=== PATIENT | female | born 1960 | race Caucasian/White ===

== ENCOUNTER → 2016-09-28 | Outpatient (CLI) | payer OTHER ==
[2016-01-07 09:01] VITALS: BP 109/70
[~2016-09-28] MED LIST: ASPI-482 PO; ATOR20TA58 PO; EXEN10PE SQ; LINA5TAB PO; LISI-338 PO; METF10002 PO
[2016-09-28 09:42] LABS: CREATININE 0.7 mg/dL (0.6-1.0); GFR 87.5; POTASSIUM 5.1 mmol/L (3.5-5.1)
== END | disposition home or self-care (01) ==
LOC: LAB 08:40
PROVIDERS: ATTEND Family Medicine
DX: I10 Essential (primary) hypertension (principal); E11.69 Type 2 diabetes mellitus with other specified complication
CPT/HCPCS: 36415; 80048; 83036

== ENCOUNTER → 2016-12-07 | Outpatient (CLI) | payer OTHER ==
[2016-01-07 09:01] VITALS: BP 109/70
[~2016-12-07] MED LIST changes: -LINA5TAB PO; +LINA5TAB4 PO; +METF-620 PO; -METF10002 PO
--- NOTE | 2016-12-07 09:48 | RAD ---
DATE: 12/07/2016 EXAM: DIGITAL SCREEN BILAT W/CAD HISTORY: Routine screening COMPARISON: 09/02/2014 This study was interpreted with the benefit of Computerized Aided Detection (CAD). FINDINGS: The breasts are predominantly fatty in nature. There are benign-appearing lymph node type densities in the axillary tail regions bilaterally. No new or enlarging breast densities are seen. Several benign type microcalcifications are in present. No suspicious microcalcifications have developed. The breast parenchyma is primarily fatty replaced. Breast parenchyma level density A. IMPRESSION: Stable mammograms without evidence of malignancy. BI-RADS CATEGORY: 2 BENIGN FINDING(S) RECOMMENDED FOLLOW-UP: 12M 12 MONTH FOLLOW-UP PQRS compliance statement: Patient information was entered into a reminder system with a target due date for the next mammogram. Mammography is a sensitive method for finding small breast cancers, but it does not detect them all and is not a substitute for careful clinical examination. A negative mammogram does not negate a clinically suspicious finding and should not result in delay in biopsying a clinically suspicious abnormality. "Our facility is accredited by the [employer] Mammography Program."
== END | disposition home or self-care (01) ==
LOC: MAMMO 08:25
PROVIDERS: ATTEND Family Medicine
DX: Z12.31 Encounter for screening mammogram for malignant neoplasm of breast (principal)
CPT/HCPCS: G0202; 77067

== ENCOUNTER → 2017-04-13 | Outpatient (CLI) | payer OTHER ==
[2016-01-07 09:01] VITALS: BP 109/70
[~2017-04-13] MED LIST changes: -EXEN10PE SQ; +EXEN10PE3 SQ
== END | disposition home or self-care (01) ==
LOC: LAB 13:11
PROVIDERS: ATTEND Family Medicine
DX: E11.69 Type 2 diabetes mellitus with other specified complication (principal)
CPT/HCPCS: 36415; 83036

== ENCOUNTER → 2017-10-12 | Outpatient (CLI) | payer OTHER ==
[2017-10-12 07:44] LABS: ANION GAP 10 (6-14); BLOOD UREA NITROGEN 19 mg/dL (7-20); CALCIUM 8.9 mg/dL (8.5-10.1); CARBON DIOXIDE 23 mmol/L (21-32); CHLORIDE 105 mmol/L (98-107); CHOLESTEROL 197 mg/dL (0-200); CREATININE 0.9 mg/dL (0.6-1.0); GFR 65.2; GLUCOSE 280 mg/dL (70-99); HDLC 38 mg/dL (40-60); LDLC 113 mg/dL (0-100); NON-HDL CHOLESTEROL 159 mg/dL (0-129); POTASSIUM 4.6 mmol/L (3.5-5.1); SODIUM 138 mmol/L (136-145); TRIGLYCERIDES 229 mg/dL (0-150); VLDLC 46 mg/dL (0-40)
[2017-10-12 07:45] LABS: CHOLESTEROL/HDL RATIO 5.2
[2017-10-12 07:54] LABS: THYROID STIM HORMONE (TSH) 2.696 uIU/mL (0.358-3.74)
[2017-10-12 12:16] LABS: HEMOGLOBIN A1C 8.4 % (4.8-5.6)
== END | disposition home or self-care (01) ==
LOC: LAB 06:58
DX: E11.69 Type 2 diabetes mellitus with other specified complication (principal); R53.83 Other fatigue
CPT/HCPCS: 36415; 80048; 80061; 83036; 84443

== ENCOUNTER → 2017-12-24 | Outpatient (CLI) | payer OTHER ==
[2017-12-24 07:36] LABS: ALBUMIN 3.2 g/dL (3.4-5.0); ALBUMIN/GLOBULIN RATIO 0.8 (1.0-1.7); ALK PHOS 68 U/L (46-116); ALT (SGPT) 20 U/L (14-59); ANION GAP 10 (6-14); AST (SGOT) 17 U/L (15-37); BLOOD UREA NITROGEN 16 mg/dL (7-20); BUN/CREATININE RATIO 20 (6-20); CALCIUM 8.7 mg/dL (8.5-10.1); CARBON DIOXIDE 24 mmol/L (21-32); CHLORIDE 102 mmol/L (98-107); CHOLESTEROL 137 mg/dL (0-200); CHOLESTEROL/HDL RATIO 3.8; CREATININE 0.8 mg/dL (0.6-1.0); GFR 74.5; GLUCOSE 267 mg/dL (70-99); HDLC 36 mg/dL (40-60); LDLC 60 mg/dL (0-100); NON-HDL CHOLESTEROL 101 mg/dL (0-129); POTASSIUM 4.4 mmol/L (3.5-5.1); SODIUM 136 mmol/L (136-145); TOTAL BILIRUBIN 0.3 mg/dL (0.2-1.0); TOTAL PROTEIN 7.4 g/dL (6.4-8.2); TRIGLYCERIDES 203 mg/dL (0-150); VLDLC 41 mg/dL (0-40)
== END | disposition home or self-care (01) ==
LOC: LAB 07:00
DX: I25.10 Atherosclerotic heart disease of native coronary artery without angina pectoris (principal)
CPT/HCPCS: 36415; 80053; 80061

== ENCOUNTER → 2018-06-18 | Outpatient (CLI) | payer OTHER ==
[2017-11-14 15:00] VITALS: BP 138/78
[~2018-06-18] MED LIST changes: +ASPI325T8 PO; +ATOR40TA PO; +BENA1TAB6 PO; +CELE200C PO; +ESTR1PAT66 TD; +GLIM4TAB2 PO; -METF-620 PO; +METF10007 PO; +METO25TA4 PO; +SIMV20TA3 PO; +SITA100T PO
--- NOTE | 2018-06-18 15:16 | RAD ---
Single frontal view hand and 2 view right 1st finger 06/18/2018 CLINICAL INDICATION: Swelling of the 1st MCP phalangeal joint. COMPARISON: None. FINDINGS: No acute fracture or traumatic malalignment with attention to the 1st digit. Normal bony alignment of the hand on single AP view. 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 Minimal scattered DIP and 2nd through 4th PIP osteoarthritis. Normal bony mineralization. Vascular calcifications at the radial aspect of the wrist. IMPRESSION: 1. No acute osseous abnormality of the 1st digit. 2. Osteoarthritis, as detailed above. Electronically signed by: Bharat Hernandez MD (06/18/2018 3:12 PM) [id number]
[2018-06-18 19:14] LABS: HEMOGLOBIN A1C 12.8 % (4.8-5.6)
== END | disposition home or self-care (01) ==
LOC: RAD 08:43
PROVIDERS: ATTEND Family Medicine
DX: M19.041 Primary osteoarthritis, right hand (principal); E11.69 Type 2 diabetes mellitus with other specified complication
CPT/HCPCS: 36415; 73140; 82043; 83036

== ENCOUNTER → 2019-06-19 | Outpatient (CLI) | payer OTHER ==
[2017-11-14 15:00] VITALS: BP 138/78
[~2019-06-19] MED LIST changes: -GLIM4TAB2 PO; +GLIM4TAB4 PO; +LINA5TAB PO; -LINA5TAB4 PO; +SIMV20TA18 PO; -SIMV20TA3 PO
[2019-06-19 08:23] LABS: CALCIUM 9.1 mg/dL (8.5-10.1); CREATININE 0.9 mg/dL (0.6-1.0); GFR 64.8; POTASSIUM 4.3 mmol/L (3.5-5.1)
[2019-06-19 08:24] LABS: CHOLESTEROL/HDL RATIO 3.8
[2019-06-20 00:07] LABS: HEMOGLOBIN A1C 9.5 % (4.8-5.6)
== END | disposition home or self-care (01) ==
LOC: LAB 07:12
PROVIDERS: ATTEND Family Medicine
DX: E11.69 Type 2 diabetes mellitus with other specified complication (principal)
CPT/HCPCS: 36415; 80048; 80061; 83036

== ENCOUNTER → 2019-06-19 | Outpatient (CLI) | payer OTHER ==
[2017-11-14 15:00] VITALS: BP 138/78
[2019-06-19 08:27] LABS: ALBUMIN 3.6 g/dL (3.4-5.0); ALBUMIN/GLOBULIN RATIO 0.9 (1.0-1.7); CALCIUM 9.1 mg/dL (8.5-10.1); CREATININE 0.9 mg/dL (0.6-1.0); GFR 64.8; POTASSIUM 4.3 mmol/L (3.5-5.1); TOTAL BILIRUBIN 0.3 mg/dL (0.2-1.0); TOTAL PROTEIN 7.8 g/dL (6.4-8.2)
[2019-06-19 08:28] LABS: CHOLESTEROL/HDL RATIO 3.8
== END | disposition home or self-care (01) ==
LOC: LAB 07:03
PROVIDERS: ATTEND Internal Medicine Cardiovascular Disease
DX: I25.10 Atherosclerotic heart disease of native coronary artery without angina pectoris (principal)
CPT/HCPCS: 36415; 80053; 80061; 83721

== ENCOUNTER → 2020-06-29 | Outpatient (CLI) | payer OTHER ==
[2017-11-14 15:00] VITALS: BP 138/78
[~2020-06-29] MED LIST changes: -GLIM4TAB4 PO; +GLIM4TAB8 PO
[2020-06-29 10:24] LABS: CALCIUM 8.9 mg/dL (8.5-10.1); CREATININE 1.3 mg/dL (0.6-1.0); GFR 42.2; POTASSIUM 4.8 mmol/L (3.5-5.1)
[2020-06-29 10:26] LABS: CHOLESTEROL/HDL RATIO 4.1
== END ==
LOC: LAB 09:55
PROVIDERS: ATTEND Family Medicine
DX: E11.69 Type 2 diabetes mellitus with other specified complication (principal)
CPT/HCPCS: 36415; 80048; 80061; 83036

== ENCOUNTER → 2020-12-09 | Outpatient (CLI) | payer OTHER ==
[2017-11-14 15:00] VITALS: BP 138/78
[~2020-12-09] MED LIST changes: -LISI-338 PO; +LISI-517 PO
--- NOTE | 2020-12-09 13:57 | CARD ---
MR#: [id number] Date of Study: 12/09/2020 Ordering Physician: ASHUTOSH POP, Referring Physician: ASHUTOSH POP, Tech: Fe Morris [facility] APPROVED REPORT EXAM: Two-dimensional and M-mode echocardiogram with Doppler and color Doppler. Other Information Quality : FairHR: 93bpm Rhythm : NSR INDICATION Dyspnea RISK FACTORS Hypertension Obesity Hyperlipidemia 2D DIMENSIONS RVDd3.1 (2.9-3.5cm)Left Atrium(2D)3.6 (1.6-4.0cm) IVSd1.1 (0.7-1.1cm)LVDd4.2 (3.9-5.9cm) PWd1.3 (0.7-1.1cm)LVDs2.5 (2.5-4.0cm) FS (%) 40.4 %SV56.3 ml LVEF(%)71.5 (>50%) Aortic Valve AoV Peak Watson.107.4cm/sAoV VTI25.8cm AO Peak GR.4.6mmHgLVOT Peak Watson.97.2cm/s AO Mean GR.2mmHg Mitral Valve MV E Ycxayqop93.8cm/sMV DECEL [id number] MV A Lkbxzmes81.6cm/sE/A Ratio1.1 Pulmonary Valve PV Peak Izqguafv90.8cm/s Tricuspid Valve TR P. Ffazfilb079ey/sTR Peak Gr.16mmHg LEFT VENTRICLE The left ventricle is normal size. There is mild concentric left ventricular hypertrophy. The left ve ntricular systolic function is normal and the ejection fraction is within normal range. Estimated eje ction fraction 55-60%. There is normal LV segmental wall motion. The left ventricular diastolic funct ion and filling is normal for age. RIGHT VENTRICLE The right ventricle is normal size. There is normal right ventricular wall thickness. The right ventr icular systolic function is normal. ATRIA The left atrium size is normal. The right atrium size is normal. The interatrial septum is intact wit h no evidence for an atrial septal defect or patent foramen ovale as noted on 2-D or Doppler imaging. AORTIC VALVE The aortic valve is normal in structure and function. Doppler and Color Flow revealed no significant aortic regurgitation. There is no significant aortic valvular stenosis. MITRAL VALVE The mitral valve is normal in structure and function. There is no evidence of mitral valve prolapse. There is no mitral valve stenosis. Doppler and Color Flow revealed no mitral valve regurgitation note d. TRICUSPID VALVE The tricuspid valve is normal in structure and function. Doppler and Color Flow revealed trace to mil d tricuspid regurgitation. Estimated PAP 20 mmHg. There is no tricuspid valve stenosis. PULMONIC VALVE Doppler and Color Flow revealed no pulmonic valvular regurgitation. There is no pulmonic valvular marquis nosis. GREAT VESSELS The aortic root is normal in size. The ascending aorta is normal in size. The IVC is normal in size a nd collapses >50% with inspiration. PERICARDIAL EFFUSION There is no evidence of significant pericardial effusion. Critical Notification Critical Value: No <Conclusion> The left ventricular systolic function is normal and the ejection fraction is within normal range. E stimated ejection fraction 55-60%. There is normal LV segmental wall motion. Signed by : Ashutosh Pop, Electronically Approved : 12/09/2020 13:57:08
== END ==
LOC: ECHO 06:44
PROVIDERS: ATTEND Internal Medicine Cardiovascular Disease
DX: I07.1 Rheumatic tricuspid insufficiency (principal); I25.10 Atherosclerotic heart disease of native coronary artery without angina pectoris
CPT/HCPCS: 93306

== ENCOUNTER → 2021-01-12 | Outpatient (CLI) | payer OTHER ==
[2017-11-14 15:00] VITALS: BP 138/78
[2021-01-12 08:08] LABS: CHOLESTEROL/HDL RATIO 4.2
== END ==
LOC: LAB 07:17
PROVIDERS: ATTEND Internal Medicine Cardiovascular Disease
DX: I25.10 Atherosclerotic heart disease of native coronary artery without angina pectoris (principal)
CPT/HCPCS: 36415; 80061

== ENCOUNTER → 2021-01-12 | Outpatient (CLI) | payer OTHER ==
[2017-11-14 15:00] VITALS: BP 138/78
[2021-01-12 23:08] LABS: HEMOGLOBIN A1C 6.6 % (4.8-5.6)
== END ==
LOC: LAB 07:10
PROVIDERS: ATTEND Family Medicine
DX: E11.9 Type 2 diabetes mellitus without complications (principal)
CPT/HCPCS: 36415; 83036

== ENCOUNTER → 2021-04-18 | Outpatient (CLI) | payer OTHER ==
[2017-11-14 15:00] VITALS: BP 138/78
== END ==
LOC: LAB 12:29
PROVIDERS: ATTEND Internal Medicine Pulmonary Disease
DX: U07.1 COVID-19 (principal)
CPT/HCPCS: U0003; U0005

== ENCOUNTER → 2021-04-20 | Outpatient (CLI) | payer OTHER ==
[~2021-04-20] MED LIST changes: +CASIRIVIMAB/IMDEVIMAB 600/600mg in IV NS TV=50 ML IV ONE
--- NOTE | 2021-04-20 16:20 | NUR ---
Received call this afternoon stating that pt was feeling worse today with Covid symptoms of headache, bone and muscle aches, as well as developing worsening respiratory symptoms. Pt stated she had not received a call back from [facility] and was getting concerned. Called and spoke with Viky Lee and Dr. Bernabe re: pt receiving possible Regeneron infusion at [facility]. Viky stated to have pt report to the ED, Dr. Bernabe stated that pt meets medical criteria for infusion including Diabetes, obesity, heart disease and history of CVA. Dr. Bernabe gave orders for Regn-Cov, per protocol. After speaking with Kandy in pharmacy, and Mena in the ED, pt was brought in for infusion. Reviewed possible reaction to infusion, pt v/u and agreeable to proceed. Geeta had placed a 20# in pt's R forearm, for infusion.
[2021-04-20 17:16] VITALS: BP 159/71
--- NOTE | 2021-04-20 17:35 | NUR ---
Regn-Cov infusion complete, pt denies any adverse reactions to infusion. Will continue to monitor for 1 hour post infusion.
[2021-04-20 17:50] VITALS: BP 168/77
[2021-04-20 18:31] VITALS: BP 163/79
--- NOTE | 2021-04-20 18:38 | NUR ---
One hour post-infusion monitoring complete. Pt with no complaints, stated she think she's feeling better, vitals stable. R forearm IV site discontinued, direct pressure held, no bleeding noted. Pt stable for discharge home, s/sx of reaction again reviewed with pt, pt v/u of return to ED with any complications.
== END | disposition home or self-care (01) ==
LOC: OPSVCOP 15:40
PROVIDERS: ATTEND Internal Medicine Pulmonary Disease
DX: U07.1 COVID-19 (principal)
CPT/HCPCS: M0243; Q0244

== ENCOUNTER → 2021-07-29 | Outpatient (CLI) | payer OTHER ==
[2021-04-20 18:31] VITALS: BP 163/79
[~2021-07-29] MED LIST changes: -CASIRIVIMAB/IMDEVIMAB 600/600mg in IV NS TV=50 ML IV ONE; -LISI-517 PO; +LISI5TAB15 PO
--- NOTE | 2021-07-29 14:36 | KCIC ---
EXAM: Pelvis and bilateral hips, 3 views. HISTORY: Pain. COMPARISON: None. FINDINGS: A frontal view the pelvis and frog-leg views of both hips are obtained. There is no fractur e, dislocation or subluxation. The femoral heads are normal in configuration. IMPRESSION: No acute osseous finding. Electronically signed by: Anastasiia Goldsmith MD (07/29/2021 2:33 PM) [id number]
== END ==
LOC: KCIC 13:55
PROVIDERS: ATTEND Family Medicine
DX: M25.551 Pain in right hip (principal); M25.552 Pain in left hip
CPT/HCPCS: 73521

== ENCOUNTER → 2021-08-29 | Outpatient (CLI) | payer OTHER ==
[2021-04-20 18:31] VITALS: BP 163/79
[2021-08-30 03:09] LABS: HEMOGLOBIN A1C 7.3 % (4.8-5.6)
== END ==
LOC: LAB 09:39
PROVIDERS: ATTEND Family Medicine
DX: E11.9 Type 2 diabetes mellitus without complications (principal)
CPT/HCPCS: 36415; 83036

== ENCOUNTER → 2021-08-29 | Outpatient (CLI) | payer OTHER ==
[2021-04-20 18:31] VITALS: BP 163/79
[2021-08-29 10:25] LABS: BASO # 0.1 x10^3/uL (0.0-0.2); BASO % 1 % (0-3); EOS # 0.2 x10^3/uL (0.0-0.7); EOS % 3 % (0-3); HEMATOCRIT 38.6 % (36.0-47.0); HEMOGLOBIN 12.9 g/dL (12.0-15.5); LYMPH # 1.8 x10^3/uL (1.0-4.8); LYMPH % 24 % (24-48); MEAN CORPUSCULAR HEMOGLOBIN 31 pg (25-35); MEAN CORPUSCULAR HGB CONC 33 g/dL (31-37); MEAN CORPUSCULAR VOLUME 93 fL (79-100); MONO # 0.5 x10^3/uL (0.0-1.1); MONO % 7 % (0-9); NEUT # 4.7 x10^3/uL (1.8-7.7); NEUT % 65 % (31-73); PLATELET COUNT 239 x10^3/uL (140-400); RED BLOOD COUNT 4.17 x10^6/uL (3.50-5.40); RED CELL DISTRIBUTION WIDTH 13.5 % (11.5-14.5); WHITE BLOOD COUNT 7.2 x10^3/uL (4.0-11.0)
[2021-08-29 10:43] LABS: ALBUMIN 3.4 g/dL (3.4-5.0); ALBUMIN/GLOBULIN RATIO 0.9 (1.0-1.7); CALCIUM 8.8 mg/dL (8.5-10.1); CREATININE 1.1 mg/dL (0.6-1.0); POTASSIUM 4.3 mmol/L (3.5-5.1); TOTAL BILIRUBIN 0.3 mg/dL (0.2-1.0); TOTAL PROTEIN 7.4 g/dL (6.4-8.2)
[2021-08-29 10:44] LABS: CHOLESTEROL/HDL RATIO 3.3
== END ==
LOC: LAB 09:41
PROVIDERS: ATTEND Internal Medicine Cardiovascular Disease
DX: I25.10 Atherosclerotic heart disease of native coronary artery without angina pectoris (principal)
CPT/HCPCS: 36415; 80053; 80061; 83721; 85025

== ENCOUNTER → 2021-09-16 | Outpatient (CLI) | payer OTHER ==
[2021-04-20 18:31] VITALS: BP 163/79
--- NOTE | 2021-09-16 16:46 | CARD ---
MR#: [id number] Date of Study: 09/16/2021 Ordering Physician: ASHUTOSH POP, Referring Physician: ASHUTOSH POP, Tech: Fe Morris [facility] APPROVED REPORT EXAM: Two-dimensional and M-mode echocardiogram with Doppler and color Doppler. Other Information Quality : Technically LimitedHR: 90bpm Rhythm : NSR INDICATION Cardiac Disease: CAD RISK FACTORS Hypertension Obesity Hyperlipidemia Diabetes 2D DIMENSIONS IVSd1.1 (0.7-1.1cm)Aortic Root(2D)3.3 (2.0-3.7cm) LVDd4.4 (3.9-5.9cm)LVOT Diameter2.2 (1.8-2.4cm) PWd1.1 (0.7-1.1cm)IVSs1.4 (0.8-1.2cm) LVDs3.2 (2.5-4.0cm)FS (%) 26.6 % PWs1.6 (0.8-1.2cm)SV44.9 ml Aortic Valve AoV Peak Watson.108.6cm/sAoV VTI19.0cm AO Peak GR.4.7mmHgLVOT Peak Watson.94.1cm/s LVOT VTI 15.26cmAO Mean GR.3mmHg VICKI (VMAX)2.29nw2OVL (VTI)2.99cm2 Mitral Valve MV E Wsbsxqny68.7cm/sMV DECEL HEQV120vh MV A Bnvwhuql30.9cm/sMV OGB63qq E/A Ratio0.6MVA (PHT)6.10cm2 Pulmonary Valve PV Peak Szwqsysz54.2cm/sPV Peak Grad.3mmHg Tricuspid Valve TR P. Hzzltlxj919yw/sTR Peak Gr.15mmHg LEFT VENTRICLE The left ventricle is normal size. There is borderline to mild concentric left ventricular hypertroph y. The left ventricular systolic function is normal and the ejection fraction is within normal range. LV ejection fraction of 55 to 60%. There is normal LV segmental wall motion. RIGHT VENTRICLE The right ventricle is normal size. There is normal right ventricular wall thickness. The right ventr icular systolic function is normal. ATRIA The left atrium size is normal. The right atrium size is normal. The interatrial septum is intact wit h no evidence for an atrial septal defect or patent foramen ovale as noted on 2-D or Doppler imaging. AORTIC VALVE The aortic valve is normal in structure and function. Doppler and Color Flow revealed no significant aortic regurgitation. There is no significant aortic valvular stenosis. MITRAL VALVE The mitral valve is normal in structure and function. There is no evidence of mitral valve prolapse. There is no mitral valve stenosis. Doppler and Color Flow revealed no mitral valve regurgitation note d. TRICUSPID VALVE The tricuspid valve is normal in structure and function. Doppler and Color Flow revealed trace to mil d tricuspid regurgitation. Estimated PAP 20 mmHg. There is no tricuspid valve stenosis. PULMONIC VALVE The pulmonary valve is normal in structure and function. Doppler and Color Flow revealed no pulmonic valvular regurgitation. GREAT VESSELS The aortic root is normal in size. The ascending aorta is normal in size. The IVC is normal in size a nd collapses >50% with inspiration. PERICARDIAL EFFUSION There is no evidence of significant pericardial effusion. Critical Notification Critical Value: No <Conclusion> The left ventricle is normal size. The left ventricular systolic function is normal and the ejection fraction is within normal range. LV ejection fraction of 55 to 60%. There is normal LV segmental wall motion. There is borderline to mild concentric left ventricular hypertrophy. Doppler and Color Flow revealed no significant aortic regurgitation. There is no significant aortic valvular stenosis. Doppler and Color Flow revealed no mitral valve regurgitation noted. Doppler and Color Flow revealed trace to mild tricuspid regurgitation. Estimated PAP 20 mmHg. Signed by : Bairon Addison MD Electronically Approved : 09/16/2021 16:45:30
== END ==
LOC: ECHO 15:09
PROVIDERS: ATTEND Internal Medicine Cardiovascular Disease
DX: I36.1 Nonrheumatic tricuspid (valve) insufficiency (principal); I51.7 Cardiomegaly; I25.10 Atherosclerotic heart disease of native coronary artery without angina pectoris
CPT/HCPCS: 93306; C8929

== ENCOUNTER → 2021-09-29 | Outpatient (CLI) | payer OTHER ==
[2021-04-20 18:31] VITALS: BP 163/79
--- NOTE | 2021-09-29 12:25 | RAD ---
DATE: 09/29/2021 EXAM: MG BILAT SCREEN+VAUGHN HISTORY: Screening COMPARISON: 09/02/2014, 12/07/2016 This study was interpreted with the benefit of Computerized Aided Detection (CAD). Breast Density: FATTY The breast parenchyma is primarily fatty replaced. Breast parenchyma level dens ity A. FINDINGS: No suspicious mass, suspicious calcification, or architectural distortion. There are unchan ged intramammary lymph nodes in the right axillary tail. IMPRESSION: No evidence of malignancy. BI-RADS CATEGORY: 1 NEGATIVE RECOMMENDED FOLLOW-UP: 12M 12 MONTH FOLLOW-UP PQRS compliance statement: Patient information was entered into a reminder system with a target due d ate for the next mammogram. Mammography is a sensitive method for finding small breast cancers, but it does not detect them all a nd is not a substitute for careful clinical examination. A negative mammogram does not negate a clin ically suspicious finding and should not result in delay in biopsying a clinically suspicious abnorma lity. "Our facility is accredited by the [employer] Mammography Program." Electronically signed by: Josey Heard MD (09/29/2021 12:23 PM) [id number]
== END ==
LOC: MAMMO 11:30
PROVIDERS: ATTEND Family Medicine
DX: Z12.31 Encounter for screening mammogram for malignant neoplasm of breast (principal)
CPT/HCPCS: 77063; 77067